=== PATIENT | male | born 1985 | race Caucasian/White ===

== ENCOUNTER 2021-07-29 03:09 | Emergency (ER) | payer OTHER ==
[~2021-07-29] VITALS: Ht 180.3 cm; Wt 104.3 kg
[2021-07-29] MEDS ORDERED: PEPCID AC20 MG PO (05:10)
== END 2021-07-29 05:28 | disposition home or self-care (01) ==
LOC: ER 03:09
DX: R11.2 Nausea with vomiting, unspecified (principal); R10.13 Epigastric pain